=== PATIENT | female | born 1955 | race Caucasian/White ===

== ENCOUNTER → 2018-04-24 | Outpatient (CLI) | payer BC | LOC: FIMAGING 13:16 | DX: Z12.31 Encounter for screening mammogram for malignant neoplasm of breast (principal) ==

== ENCOUNTER → 2018-05-17 | Outpatient (CLI) | payer BC ==
[~2018-05-17] MED LIST: IOPAMIDOL (ISOVUE-300) 100 ML BTL ONE
== END ==
LOC: FIMAGING 13:03
PROVIDERS: ATTEND Physician Assistant Medical
DX: R30.0 Dysuria (principal); R33.9 Retention of urine, unspecified; R31.0 Gross hematuria
CPT/HCPCS: Q9967